=== PATIENT | female | born 1960 | race Caucasian/White ===

== ENCOUNTER 2016-03-26 14:28 | Emergency (ER) ==
[2016-03-26 14:38] VITALS: BP 162/80; TEMP 98.6; BMI 38.3
[2016-03-26] MEDS ORDERED: DOXYCYCLINE HYCLATE PO STA (16:03)
--- NOTE | 2016-03-26 16:06 | ED.PDOC ---
General ED Provider: Dr. VY SANCHEZ-ER Chief Complaint: Abscess Stated Complaint: dasha had this spot for a long time but now its red and inflammed Time Seen by Physician: 16:04 Mode of Arrival: Walk-In Information Source: Patient Exam Limitations: No limitations Nursing and Triage Documentation Reviewed and Agree: Yes Skin Complaint Exam - Skin/Soft Tissue Complaint/Exam Onset/Duration: 2 days Symptoms Are: Still present Timing: Constant Initial Severity: Mild Current Severity: Mild Location: posterior neck Character: Reports: Redness, Swelling, Raised, Painful Aggravating: Reports: Touch Alleviating: Reports: None Associated Signs and Symptoms: Reports: Tenderness. Denies: Fever, Chills, Itching, Drainage, Bruising, Red streaks, Joint swelling Related Surgical History: Reports: None Recent Exposure to Others w/Similar Symptoms: No Skin Findings: Present: Skin lesion Joint Tenderness Present: No Differential Diagnoses: Other (sebaceous cyst) Review of Systems - Review Of Systems Constitutional: Reports: No symptoms Eyes: Reports: No symptoms Ears, Nose, Mouth, Throat: Reports: No symptoms Respiratory: Reports: No symptoms Cardiac: Reports: No symptoms GI: Reports: No symptoms : Reports: No symptoms Musculoskeletal: Reports: No symptoms Skin: Reports: No symptoms, Other (noted sebaceous cyst neck) Neurological: Reports: No symptoms Endocrine: Reports: No symptoms Hematologic/Lymphatic: Reports: No symptoms All Other Systems: Reviewed and Negative Past Medical History - Past Medical History Previously Healthy: Yes Endocrine: Reports: None Cardiovascular: Reports: None Respiratory: Reports: None Hematological: Reports: None Gastrointestinal: Reports: None Genitourinary: Reports: None Neuro/Psych: Reports: None Musculoskeletal: Reports: None Cancer: Reports: None Last Menstrual Period: menopause - Surgical History General Surgical History: Reports: - Family History Family History: Reports: Unknown - Social History Smoking Status: Current every day smoker, Heavy tobacco smoker Hx Substance Use: No Alcohol Screening: None Lives: With family Physical Exam - Physical Exam Appearance: Well-appearing, No pain distress, Well-nourished Eyes: THA, EOMI, Conjunctiva clear ENT: Ears normal, Nose normal, Oropharynx normal Neck: Supple Respiratory: Airway patent, Breath sounds clear, Breath sounds equal, Respirations nonlabored Cardiovascular: RRR, Pulses normal, No rub, No murmur GI/: Soft, Nontender, No masses, Bowel sounds normal, No Organomegaly Musculoskeletal: Normal strength, ROM intact, No edema, No calf tenderness Skin: Warm, Dry (noted 2.5cm sebaceous cyst posterior neck wtih erythema) Neurological: Sensation intact, Motor intact, Reflexes intact, Cranial nerves intact, Alert, Oriented Psychiatric: Affect appropriate, Mood appropriate Re-Evaluation - Re-Evaluation Time of Re-Evaluation: 16:06 Status: Unchanged Vital Signs Stable: Yes Pain Level: 0 Appearance: NAD Lungs: Clear Skin: Warm and Dry Neuro: Alert and Oriented X3 CV: RRR Critical Care Note - Critical Care Note Total Time (mins): 0 Course - Course Orders, Labs, Meds: Orders Category Date Time Status Doxycycline Hyclate MEDS 03/26/16 16:03 Stat 100 mg PO NOW STA Vital Signs: Temp Pulse Resp BP Pulse Ox 03/26/16 14:29 98.6 F 79 16 162/80 H 95 Departure - Departure Time of Disposition: 16:06 Disposition: HOME SELF-CARE Discharge Problem: Sebaceous cyst Instructions: Epidermal Inclusion Cysts (ED) Condition: Good Pt referred to PMD for follow-up: Yes Additional Instructions: minocin 100mg bid #28--heat--f/u with clinic this week--consider surgical referral Allergies/Adverse Reactions: Allergies No Known Allergies Allergy (Verified 03/26/16 14:35) Home Medications: Ambulatory Orders 1 [No Reported Medications] 03/26/16 Disposition Discussed With: Patient, Family
== END 2016-03-26 16:21 | disposition home or self-care (01) ==
LOC: ED 14:28
DX: L72.3 Sebaceous cyst (principal); F17.210 Nicotine dependence, cigarettes, uncomplicated
CPT/HCPCS: 99282